=== PATIENT | female | born 1960 | race Hispanic/Latino ===

== ENCOUNTER → 2024-12-15 09:56 | Outpatient (CLI) | payer MEDICARE, MEDICAID, OTHER, SELFPAY ==
--- NOTE | 2024-12-15 10:00 | DI.RAD.S_ITS ---
PROCEDURE: XR RIBS LT 2V INDICATIONS: GLF, left side rib pain TECHNIQUE: 2 views of the ribs were acquired. COMPARISON: None. FINDINGS: Surgical changes and devices: None. Bones and chest wall: No fractures or dislocations. No suspicious bony lesions. Overlying soft tissues appear unremarkable. Lungs and pleura: The visualized lung appears clear. No pleural effusions or pneumothorax are visible. IMPRESSION: Normal left ribs Dictated by: Zane Todd M.D. on 12/16/2024 at 13:03 Approved by: Zane Todd M.D. on 12/16/2024 at 13:04
--- NOTE | 2024-12-15 10:00 | DI.RAD.S_ITS ---
PROCEDURE: XR KNEE LT 3V INDICATIONS: Chronic L knee pain, arthritis TECHNIQUE: 3 views of the knee were acquired. COMPARISON: None. FINDINGS: Bones: There are no focal osseous abnormalities. Diffuse osteoporosis noted Joints: Moderate patellofemoral and tibial femoral degeneration noted. Small suprapatellar effusion Soft tissues: Normal IMPRESSION: Moderate degeneration. Small effusion Diffuse osteoporosis. Consider DEXA scanning. If confirmed, patient may benefit from medical therapy for future fracture prevention. Dictated by: Zane Todd M.D. on 12/16/2024 at 13:04 Approved by: Zane Todd M.D. on 12/16/2024 at 13:05
--- NOTE | 2024-12-15 10:00 | DI.RAD.S_ITS ---
PROCEDURE: XR FINGER RT MIN 2V INDICATIONS: R index finger injury, possible fracture TECHNIQUE: AP hand, 2 views of the 2nd finger acquired. COMPARISON: None. FINDINGS: Bones: Minimally displaced spiral fracture of the 2nd proximal phalanx appreciated. There is moderate diffuse osteoporosis . Joints: Mild distal radioulnar radiocarpal STT moderate 1st CMC moderate 1st MCP degeneration noted. There is mild to moderate degeneration all interphalangeal joints Soft tissues: No soft tissue abnormality. IMPRESSION: Minimally displaced spiral fracture 2nd proximal phalanx. Diffuse osteoporosis Dictated by: Zane Todd M.D. on 12/16/2024 at 13:05 Approved by: Zane Todd M.D. on 12/16/2024 at 13:07
[2024-12-15 11:29] LABS: Hematocrit 36.6 % (36-46); Hemoglobin 11.6 g/dL (12.0-16.0); Mean Corpuscular HGB Conc 31.6 % (30-36); Mean Corpuscular Hemoglobin 30.0 PG (26-34); Mean Corpuscular Volume 94.7 fL (80-100); Platelet Count 234 X10^3/uL (150-400)
[2024-12-15 12:08] LABS: Alanine Aminotransferase 12 IU/L (<35); Albumin 3.6 g/dL (3.5-5.0); Albumin Globulin Ratio 1.4 (1.0-2.8); Alkaline Phosphatase 138 U/L (38-126); Blood Urea Nitrogen 7 mg/dL (7-17); Calcium 8.7 mg/dL (8.4-10.2); Carbon Dioxide 30 mmol/L (22-32); Chloride 102 mmol/L (98-107); Cholesterol 171 mg/dL (140-199); Estimated Glomerular Filt Rate > 60 mL/min (>60); Globulin 2.5 g/dL (1.7-4.1); Glucose 132 mg/dL (70-99); HDL Cholesterol 64 mg/dL (40-60); HEMOLYSIS < 15 (0-50); Potassium 3.9 mmol/L (3.4-5.1); Sodium 138 mmol/L (137-145); Total Protein 6.1 g/dL (6.3-8.2); Triglycerides 125 mg/dL (35-150); Uric Acid 2.9 mg/dL (2.5-6.2)
[2024-12-15 12:24] LABS: Free T4, Direct Thyroxine 1.86 ng/dL (0.78-2.19); Vitamin D 25 Hydroxy (D3) < 12.8 ng/mL (30.0-100.0)
[2024-12-15 12:38] LABS: Thyroid Stimulating Hormone 3.04 uIU/mL (0.47-4.68)
[2024-12-15 14:50] LABS: HIV 1 & 2 Ab/Ag 4th Gen Combo NEGATIVE (NEGATIVE); Hep C Virus Ab w/Reflex Quant NEGATIVE s/c (NEGATIVE)
[2024-12-16 13:15] LABS: Hemoglobin A1C% w Est Avg Glu 6.6 % (4.0-6.0)
== END ==
PROVIDERS: PCP Family Medicine; Referring Provider Family Medicine; Visit Provider Family Medicine
DX: Z13.220 Encounter for screening for lipoid disorders (principal); Z13.9 Encounter for screening, unspecified; S62.610A Displaced fracture of proximal phalanx of right index finger, initial encounter for closed fracture; M18.11 Unilateral primary osteoarthritis of first carpometacarpal joint, right hand; M19.041 Primary osteoarthritis, right hand; M81.0 Age-related osteoporosis without current pathological fracture; M25.462 Effusion, left knee; M25.562 Pain in left knee; R07.89 Other chest pain; R73.03 Prediabetes; E03.9 Hypothyroidism, unspecified; G89.29 Other chronic pain; M17.12 Unilateral primary osteoarthritis, left knee; E06.3 Autoimmune thyroiditis; W18.30XA Fall on same level, unspecified, initial encounter
CPT/HCPCS: 36415; 71100; 73140; 73562; 80053; 80061; 82306; 83036; 84439; 84443; 84550; 85027; 86803; 87389